=== PATIENT | male | born 1950 | race Caucasian/White ===

== ENCOUNTER → 2019-05-08 | Outpatient (CLI) | payer MEDICARE | LOC: RAD 09:58 | DX: N32.3 Diverticulum of bladder (principal); I51.7 Cardiomegaly; R31.21 Asymptomatic microscopic hematuria | CPT/HCPCS: Q9967 ==

== ENCOUNTER → 2020-06-27 | Outpatient (CLI) | payer MEDICARE | LOC: RAD 13:07 | DX: N20.0 Calculus of kidney (principal); N32.3 Diverticulum of bladder; N28.9 Disorder of kidney and ureter, unspecified; I70.0 Atherosclerosis of aorta; E66.01 Morbid (severe) obesity due to excess calories ==

== ENCOUNTER → 2020-08-13 | Outpatient (CLI) | payer MEDICARE ==
[2020-08-13 18:54] LABS: ALBUMIN 3.1 g/dL (3.4-4.8); POTASSIUM 4.1 mmol/L (3.5-5.1)
[2020-08-13 18:56] LABS: CALCIUM 7.9 mg/dL (8.3-10.5)
[2020-08-13 18:57] LABS: TOTAL PROTEIN 7.1 g/dL (6.2-8.1)
[2020-08-13 18:59] LABS: TOTAL BILIRUBIN 0.3 mg/dL (0.2-1.2)
== END ==
LOC: LAB 18:02
PROVIDERS: Nurse Practitioner
DX: N30.01 Acute cystitis with hematuria (principal); Z79.01 Long term (current) use of anticoagulants

== ENCOUNTER → 2021-01-09 | Outpatient (CLI) | payer MEDICARE ==
[~2021-01-09] MED LIST: ATORVASTATIN CA40 MG PO; CEFDINIR300 MG PO; COLACE100 M1 PO; DILTIAZEM 24HR120 M2 PO; FLOMAX0.4 MG PO; FUROSEMIDE20 MG PO; JANTOVEN1 MG PO; LEADER OMEPRAZO20 MG PO; MUCINEX 60600 MG/TA1 PO; PHARMASSURE FO0.4 MG PO; SODIUM BIC650 MG/TAB PO; SPIRIVA RE2.5 MCG/Ac IH; SYMBICORT1 AE3 IH; VITAMIN D3125 MC4 PO; ZOFRAN ODT4 MG PO; ZYLOPRIM 100MG100 MG PO
== END ==
LOC: RAD 01-05 08:00
DX: I25.10 Atherosclerotic heart disease of native coronary artery without angina pectoris (principal); N32.3 Diverticulum of bladder; R63.4 Abnormal weight loss

== ENCOUNTER 2021-04-08 12:28 | Emergency (ER) | payer MEDICARE ==
[2021-04-08 13:28] LABS: BASO # 0.04 (0.02-0.10); EOS # 0.19 (0.04-0.40); HEMATOCRIT 29.7 % (42.0-52.0); HEMOGLOBIN 9.7 g/dL (13.5-18.0); LYMPH# 2.33 (1.50-4.00); MEAN CELL VOLUME 92 fl (78-100); MEAN CORPUSCULAR HEMOGLOBIN 30 pg (27-31); MEAN CORPUSCULAR HGB CONC 33 g/dL (33-37); MEAN PLATELET VOLUME 10.2 fl (7.4-10.4); MONO # 0.48 (0.20-0.80); NEU # 3.07 (1.40-6.50); PLATELET COUNT 156 K/mm3 (130-400); RED BLOOD COUNT 3.23 M/mm3 (4.20-5.60); RED CELL DISTRIBUTION WIDTH 15.2 % (11.5-14.5); WHITE BLOOD COUNT 6.2 K/mm3 (4.8-10.8)
[2021-04-08 13:33] LABS: PROTHROMBIN TIME 14.3 SECONDS (9.0-12.0)
[2021-04-08] MEDS ORDERED: PHARMASSURE FO0.4 MG PO (13:36)
[2021-04-08] MEDS ORDERED: FUROSEMIDE20 MG PO (13:37)
[2021-04-08] MEDS ORDERED: JANTOVEN1 MG PO (13:37)
[2021-04-08] MEDS ORDERED: ATORVASTATIN CA40 MG PO (13:38)
[2021-04-08] MEDS ORDERED: FLOMAX0.4 MG PO (13:38)
[2021-04-08] MEDS ORDERED: COLACE100 M1 PO (13:39)
[2021-04-08] MEDS ORDERED: MUCINEX 60600 MG/TA1 PO (13:39)
[2021-04-08] MEDS ORDERED: SYMBICORT1 AE3 IH (13:40)
[2021-04-08] MEDS ORDERED: SPIRIVA RE2.5 MCG/Ac IH (13:40)
[2021-04-08] MEDS ORDERED: VITAMIN D3125 MC4 PO (13:42)
[2021-04-08] MEDS ORDERED: LEADER OMEPRAZO20 MG PO (13:43)
[2021-04-08] MEDS ORDERED: SODIUM BIC650 MG/TAB PO (13:44)
[2021-04-08] MEDS ORDERED: DILTIAZEM 24HR120 M2 PO (13:44)
[2021-04-08] MEDS ORDERED: ZYLOPRIM 100MG100 MG PO (13:44)
[2021-04-08 13:49] LABS: ALBUMIN 2.5 g/dL (3.4-4.8); POTASSIUM 3.5 mmol/L (3.5-5.1)
[2021-04-08 13:51] LABS: CALCIUM 8.5 mg/dL (8.3-10.5)
[2021-04-08 13:52] LABS: TOTAL PROTEIN 6.2 g/dL (6.2-8.1)
[2021-04-08 13:54] LABS: TOTAL BILIRUBIN 0.4 mg/dL (0.2-1.2)
[2021-04-08 16:53] LABS: URINE APPEARANCE CLEAR; URINE BILIRUBIN NEGATIVE (NEGATIVE); URINE BLOOD 250 ery/uL (NEGATIVE); URINE COLOR YELLOW; URINE GLUCOSE NEGATIVE (NEGATIVE); URINE KETONE SMALL (NEGATIVE); URINE LEUKOCYTE ESTERASE 1+ (NEGATIVE); URINE NITRATE NEGATIVE (NEGATIVE); URINE PROTEIN(semi-quant) 2+ mg/dL (NEGATIVE); URINE UROBILINOGEN NORMAL (NORMAL)
[2021-04-08] MEDS ORDERED: CEFDINIR300 MG PO (17:00)
[2021-04-08] MEDS ORDERED: ZOFRAN ODT4 MG PO (17:08)
[2021-04-08 18:56] VITALS: BP 113/79
== END 2021-04-08 18:55 | disposition home or self-care (01) ==
LOC: ED 12:28
PROVIDERS: Family Medicine
DX: N39.0 Urinary tract infection, site not specified (principal); E86.9 Volume depletion, unspecified; R11.0 Nausea; R63.0 Anorexia; I12.9 Hypertensive chronic kidney disease with stage 1 through stage 4 chronic kidney disease, or unspecified chronic kidney disease; N18.9 Chronic kidney disease, unspecified; J44.9 Chronic obstructive pulmonary disease, unspecified; I48.91 Unspecified atrial fibrillation; M10.9 Gout, unspecified; F17.200 Nicotine dependence, unspecified, uncomplicated; Z79.01 Long term (current) use of anticoagulants; Z91.14 Patient's other noncompliance with medication regimen
CPT/HCPCS: J0696; J2405; J3490; J7030; J7060